=== PATIENT | female | born 1990 | race Caucasian/White ===

== ENCOUNTER 2020-02-27 11:40 | Inpatient (IN) | payer OTHER ==
[~2020-02-27] VITALS: Ht 170.2 cm; Wt 87.1 kg
[2020-02-27] MEDS ORDERED: EVENING PRIMROSE (12:28)
[2020-02-27] MEDS ORDERED: PRENATAL TABLE1 EAC2 PO (12:28)
[2020-02-27] MEDS ORDERED: FEROSUL325 M1 PO (12:29)
[2020-02-27] MEDS ORDERED: ACYC800 (12:30)
[2020-02-27] MEDS ORDERED: Acerola C500 MG PO (12:30)
--- NOTE | 2020-02-27 12:33 | NUR ---
PT VERBALLY ANSWERES NO TO ALL SUISIDE RISK ASSESSMENT QUESTIONS
[2020-02-27 13:42] LABS: BASOPHILS ABSOLUTE AUTO 0.05 K/mm3 (0.00-0.23); BASOPHILS PERCENT AUTO 1 % (0-2); EOSINOPHILS ABSOLUTE AUTO 0.21 K/mm3 (0.00-0.68); EOSINOPHILS PERCENT AUTO 2 % (0-6); Hematocrit 35.2 % (33.0-51.0); IMMATURE GRAN ABSOLUTE AUTO 0.15 K/mm3 (0.00-0.10); IMMATURE GRAN PERCENT AUTO 1 % (0-1); LYMPHOCYTES ABSOLUTE AUTO 1.74 K/mm3 (0.84-5.20); LYMPHOCYTES PERCENT AUTO 16 % (21-46); MONOCYTES ABSOLUTE AUTO 0.72 K/mm3 (0.16-1.47); MONOCYTES PERCENT AUTO 7 % (4-13); Mean Corpuscular HGB 31.3 pg (26.0-34.0); Mean Corpuscular HGB Conc 34.1 g/dL (31.5-36.5); Mean Corpuscular Volume 92 fL (80-100); Mean Platelet Volume 11.7 fL (9.1-12.4); NEUTROPHILS ABSOLUTE AUTO 7.89 K/mm3 (1.96-9.15); NEUTROPHILS PERCENT AUTO 73 % (41-73); Platelet Count 164 K/mm3 (150-400); RDW Coefficient Variation 12.1 % (11.7-14.2); RDW Standard Deviation 40.3 fL (35.1-46.3); Red Blood Cell Count 3.84 M/mm3 (3.80-5.20); White Blood Cell Count 10.76 K/mm3 (4.00-11.30)
[2020-02-27 13:54] LABS: Influenza A, PCR Negative (NEGATIVE); Influenza B, PCR Negative (NEGATIVE); Resp Syncytial Virus, PCR Negative (NEGATIVE); SARS-Cov-2 (COVID-19) PCR, MMC Negative (NEGATIVE)
[2020-02-27 17:59] LABS: U Amphetamine Screen Not Detected; U Barbituate Screen Not Detected; U Benzodiazapine Screen Not Detected; U Buprenorphine Screen Not Detected; U Cannabinoids Screen Not Detected; U Cocaine Screen Not Detected; U Methadone Screen Not Detected; U Methamphetamine Screen Not Detected; U Opiates Screen Not Detected; U Oxycodone Screen Not Detected; U Phencyclidine Screen Not Detected; U Propoxyphene Screen Not Detected
--- NOTE | 2020-02-27 18:17 | NUR ---
2 ATTEMPTS BY TOO NELSON AND 2 ATTEMPTS BY TOO MELENDEZ. SUCCESSFUL PLACEMENT ON THE OVERALL 4TH ATTEMPT
--- NOTE | 2020-02-28 06:50 | NUR ---
CATHETER D/C AT 0444
--- NOTE | 2020-02-28 16:43 | NUR ---
RN ROUNDED TO HELP W/ . NB NOT SHOWING INTEREST IN FEEDING. INSTRUCT/DEMO WIDENING LATCH, CORRECT POSITIONING AND NIPPLE SHAPE AFTER FEEDS. RN WILL ROUND AGAIN THE MORNING TO HELP W/ LATCHING.
[2020-02-29 05:53] LABS: Hematocrit 33.2 % (33.0-51.0); Hemoglobin 11.1 g/dL (11.5-16.0); Mean Corpuscular HGB 31.4 pg (26.0-34.0); Mean Corpuscular HGB Conc 33.4 g/dL (31.5-36.5); Mean Corpuscular Volume 94 fL (80-100); Mean Platelet Volume 11.4 fL (9.1-12.4); Platelet Count 156 K/mm3 (150-400); RDW Coefficient Variation 12.2 % (11.7-14.2); RDW Standard Deviation 42.4 fL (35.1-46.3); Red Blood Cell Count 3.54 M/mm3 (3.80-5.20); White Blood Cell Count 12.09 K/mm3 (4.00-11.30)
--- NOTE | 2020-02-29 12:16 | NUR ---
PT DISCHARGED TO HOME WITH .
--- NOTE | 2020-02-29 13:12 | NUR ---
RN ROUNED TO HELP W/ . PT STATES NB HAS NOT BEEN LATCHING AND HAS BEEN GIVEN FORMULA. PT USING SHIELD, RN SHOWED PT HOW TO LATCH NB W/ SHIELD AND BY HAVING MILK READY IN THE SHIELD. NB LATCHED EASILY AND WAS FEEDING WELL WHEN RN IN ROOM. PT STATES THIS IS SOMETHING SHE FEELS SHE CAN DO AT HOME. FURTHER SUPPORT OFFERED IF PT DESIRES.
== END 2020-02-29 12:15 | disposition home or self-care (01) | DRG 807 ==
LOC: OBS 11:40 → BC 11:41 → OBS 11:49 → BC 11:51
PROVIDERS: ADMIT Advanced Practice Midwife
PROC: 3E0R3BZ Introduction of Anesthetic Agent into Spinal Canal, Percutaneous Approach (ICD-10-PCS; 2020-02-27)
PROC: 00HU33Z Insertion of Infusion Device into Spinal Canal, Percutaneous Approach (ICD-10-PCS; 2020-02-27)
PROC: 10E0XZZ Delivery of Products of Conception, External Approach (ICD-10-PCS; principal; 2020-02-28)
PROC: 0HQ9XZZ Repair Perineum Skin, External Approach (ICD-10-PCS; 2020-02-28)
DX: O48.0 Post-term pregnancy (principal); Z37.0 Single live birth; Z3A.40 40 weeks gestation of pregnancy; O70.0 First degree perineal laceration during delivery
CPT/HCPCS: 0241U; 36415; 51702; 85025; 85027; 86850; 86870; 86900; 86901; J0290; J1885; J2001; J2210; J2590; J2791; J3010; J7120

== ENCOUNTER 2020-04-01 13:46 | Emergency (ER) | payer OTHER ==
[~2020-04-01] VITALS: Ht 170.2 cm; Wt 77.1 kg
[~2020-04-01 13:46] MED LIST: ACYC800; Acerola C500 MG PO; EVENING PRIMROSE; FEROSUL325 M1 PO; PRENATAL TABLE1 EAC2 PO
[2020-04-01] MEDS ORDERED: DOXY100 (14:14)
[2020-04-01] MEDS ORDERED: KETO10 PO ×2 (14:34)
[2020-04-01] MEDS ORDERED: AMOCLA875 PO ×2 (14:34)
== END 2020-04-01 14:31 | disposition home or self-care (01) ==
LOC: ER 13:46
DX: N61.0 Mastitis without abscess (principal)
CPT/HCPCS: 99283

== ENCOUNTER 2020-04-03 21:15 | Observation (INO) | payer OTHER ==
[~2020-04-03] VITALS: Ht 170.2 cm; Wt 79.0 kg
[~2020-04-03 21:15] MED LIST changes: +AMOCLA875 PO; +DOXY100; +KETO10 PO
[2020-04-03 22:37] LABS: BASOPHILS ABSOLUTE AUTO 0.06 K/mm3 (0.00-0.23); BASOPHILS PERCENT AUTO 1 % (0-2); EOSINOPHILS ABSOLUTE AUTO 0.44 K/mm3 (0.00-0.68); EOSINOPHILS PERCENT AUTO 4 % (0-6); Hematocrit 35.6 % (33.0-51.0); Hemoglobin 11.8 g/dL (11.5-16.0); IMMATURE GRAN ABSOLUTE AUTO 0.04 K/mm3 (0.00-0.10); IMMATURE GRAN PERCENT AUTO 0 % (0-1); LYMPHOCYTES ABSOLUTE AUTO 2.24 K/mm3 (0.84-5.20); LYMPHOCYTES PERCENT AUTO 20 % (21-46); MONOCYTES ABSOLUTE AUTO 1.08 K/mm3 (0.16-1.47); MONOCYTES PERCENT AUTO 10 % (4-13); Mean Corpuscular HGB 30.1 pg (26.0-34.0); Mean Corpuscular HGB Conc 33.1 g/dL (31.5-36.5); Mean Corpuscular Volume 91 fL (80-100); Mean Platelet Volume 10.2 fL (9.1-12.4); NEUTROPHILS ABSOLUTE AUTO 7.15 K/mm3 (1.96-9.15); NEUTROPHILS PERCENT AUTO 65 % (41-73); Platelet Count 222 K/mm3 (150-400); RDW Standard Deviation 36.6 fL (35.1-46.3); Red Blood Cell Count 3.92 M/mm3 (3.80-5.20); White Blood Cell Count 11.01 K/mm3 (4.00-11.30)
[2020-04-03 22:53] LABS: Alanine Aminotransfer (ALT/SGP 18 U/L (12-78); Albumin/Globulin Ratio 0.8 (0.8-1.8); Alk Phos 104 U/L (50-136); Anion Gap 4 mmol/L (6-16); Aspartate Aminotrans (AST/SGOT 12 U/L (12-37); Bilirubin, Total 0.3 mg/dL (0.1-1.0); Blood Urea Nitrogen 13 mg/dL (8-24); Bun/Creatinine Ratio 17.9 (12.0-20.0); CO2, Blood 28 mmol/L (21-32); Calcium, Blood 8.4 mg/dL (8.5-10.1); Chloride, Blood 110 mmol/L (98-108); Creatinine, Blood 0.73 mg/dL (0.40-1.00); Globulin, Blood 3.9 g/dL (2.2-4.0); Glomerular Filtration Rate >60 (60-); Glucose, Blood 88 mg/dL (70-99); Potassium, Blood 3.7 mmol/L (3.5-5.5); Sodium, Blood 142 mmol/L (136-145); Total Protein, Blood 6.9 g/dL (6.4-8.2)
--- NOTE | 2020-04-04 01:45 | NUR ---
PT ARRIVED TO ROOM FROM ER; ACCOMPANIED BY SIG OTHER. PT ALERT, VSS. PT HAS LARGE REDDENED AREA AROUND RIGHT BREAST APPX 6.5 INCHES ACCROSS WITH LARGE RED/PURPLE COLORED ABCESS APPX 2.5 INCHES IN DIAMETER AND RAISED APPX 2CM. NO DRNG NOTRED FROM ABCESS. AREAS OUTLINED. PT REP PAIN 5/10, IMPROVED AFTER MED IN ER. PT DENIES N/V. PT REP PUMPS AND DUMPS BREAST MILK. PUMP BROUGHT UP FROM [facility] FOR PT TO USE IN ROOM. PT ORIENTED TO ROOM/CALL LIGHT. PT NPO PER ORDERS FOR PLAN FOR SURGERY TODAY.
[2020-04-04 03:07] LABS: Influenza A, PCR Negative (NEGATIVE); Influenza B, PCR Negative (NEGATIVE); Resp Syncytial Virus, PCR Negative (NEGATIVE); SARS-Cov-2 (COVID-19) PCR, MMC Negative (NEGATIVE)
--- NOTE | 2020-04-04 07:30 | NUR ---
PT VSS T/O NIGHT. RIGHT BREAST REMAINS RED/HOT TO TOUCH. NO CHANGES NOTED IN REDNESS, ABCESS DOES APPEAR MORE RAISED THIS AM; NO DRNG NOTED. PAIN MGD W/0.5MG IV DILAUDID W/REP RELIEF. PT ENC TO PUMP TO HELP REDUCE PRESSURE. PT HAD NO C/O N/V, HAS BEEN NPO SINCE ARRIVING TO FLOOR FOR PLAN FOR SURGERY TODAY.
--- NOTE | 2020-04-04 14:50 | NUR ---
ARRIVED INTO [facility] WITH RN ADMISSON TO UNIT STARTED. PATIENT ALERT ORENTED AND COORPEATIVE
--- NOTE | 2020-04-04 16:24 | NUR ---
ARRIVED AIRWAY IN PLACE VSS DRESSING IN PLACE WEARING BREAST BINDER WITH GAUZE AND ABD UNDER.
--- NOTE | 2020-04-04 17:22 | NUR ---
SHIFT SUMMARY PT POD 0 I&D R BREAST ABCESS. PT RETURNED TO UNIT FROM PACU AT APROX 1700. PT REPORTS PAIN TOLERABLE AT THIS TIME 07/16. BREAST BINDER IN PLACE WITH GUAZE UNDERNEATH CLEAN AND DRY. PT SLEEPY, AWAKENS EASILY TO VERBAL STIMULUS. PT HAS USED BREAST PUMP TO PREVENT ENGORGEMENT T/O SHIFT.
--- NOTE | 2020-04-05 04:22 | NUR ---
SHIFT SUMMARY: PT POD#1 FOR INCISION AND DRAINAGE OF RIGHT BREAST ABSCESS. WOUND PACKED WITH GAUZE WITH ABD PAD AND BREAST BINDER IN PLACE. DRESSING APPEARS WNL. PAIN BEING MANAGED WITH NORCO PER EMAR. PT INDEPENDENT IN ROOM. VOIDING WELL. LEXII PO AND DENIES N/V. IV ABX INFUSING PER ORDERS. VSS THROUGHOUT NIGHT.
[2020-04-05] MEDS ORDERED: HYDR1TAB94 PO ×2 (11:22)
[2020-04-05] MEDS ORDERED: CLEOCIN PO ×2 (11:25)
--- NOTE | 2020-04-05 15:49 | NUR ---
DISCHARGE PT DISCHARGED HOME FROM UNIT AT APROX 1515. PT GIVEN WRITTEN AND VERBAL DISCHARGE INSTRUCTIONS AND VERBALIZED UNDERSTANDING OF THESE INSTRUCTIONS. IV REMOVED. PT GIVEN SUPPLIES FOR PACKING WOUND AND GAVE VERBAL INSTRUCTIONS TO BOYFRIEND ON HOW TO CHANGE PACKING. WHEELCHAIR TO CAR
== END 2020-04-05 15:44 | disposition home or self-care (01) ==
LOC: ER 21:15 → SURS 21:16
PROVIDERS: Emergency Medicine; ADMIT Surgery
DX: O91.12 Abscess of breast associated with the puerperium (principal); B96.89 Other specified bacterial agents as the cause of diseases classified elsewhere; O92.29 Other disorders of breast associated with pregnancy and the puerperium; Z79.2 Long term (current) use of antibiotics; Z79.899 Other long term (current) drug therapy; Z91.09 Other allergy status, other than to drugs and biological substances; Z20.828 Contact with and (suspected) exposure to other viral communicable diseases; Z23 Encounter for immunization
CPT/HCPCS: 0241U; 36415; 76642; 80053; 81025; 85025; 87070; 87075; 87077; 87186; 87205; 96365; 96375; 99284-25; A9270-GY; J1100; J1170; J2250; J2405; J2704; J3010; J7120

== ENCOUNTER 2020-04-19 00:25 | Day surgery (SDC) | payer OTHER ==
[~2020-04-19 00:25] MED LIST changes: +CLEOCIN PO; +HYDR1TAB94 PO
== END 2020-04-19 22:43 | disposition home or self-care (01) ==
LOC: WOUND 00:25
DX: O91.12 Abscess of breast associated with the puerperium (principal); Z88.1 Allergy status to other antibiotic agents
CPT/HCPCS: G0463

== ENCOUNTER 2020-04-26 00:30 | Day surgery (SDC) | payer OTHER | END 2020-04-26 23:10 | disposition home or self-care (01) | LOC: WOUND 00:30 | DX: S20.111A Abrasion of breast, right breast, initial encounter (principal); I96 Gangrene, not elsewhere classified; Z91.09 Other allergy status, other than to drugs and biological substances; Z79.899 Other long term (current) drug therapy; Z20.822 Contact with and (suspected) exposure to COVID-19; X58.XXXA Exposure to other specified factors, initial encounter | CPT/HCPCS: A9270 ==

== ENCOUNTER 2020-05-05 00:27 | Day surgery (SDC) | payer OTHER | END 2020-05-05 23:20 | disposition home or self-care (01) | LOC: WOUND 00:27 | DX: O91.13 Abscess of breast associated with lactation (principal) | CPT/HCPCS: G0463 ==

== ENCOUNTER 2020-05-12 00:22 | Day surgery (SDC) | payer OTHER | END 2020-05-12 23:45 | disposition home or self-care (01) | LOC: WOUND 00:22 | DX: O91.13 Abscess of breast associated with lactation (principal) | CPT/HCPCS: G0463 ==

== ENCOUNTER 2020-05-19 00:36 | Day surgery (SDC) | payer OTHER | END 2020-05-19 22:45 | disposition home or self-care (01) | LOC: WOUND 00:36 | DX: L98.491 Non-pressure chronic ulcer of skin of other sites limited to breakdown of skin (principal); L03.313 Cellulitis of chest wall; Z86.19 Personal history of other infectious and parasitic diseases | CPT/HCPCS: A9270 ==

== ENCOUNTER 2020-05-26 00:31 | Day surgery (SDC) | payer OTHER | END 2020-05-26 23:48 | disposition home or self-care (01) | LOC: WOUND 00:31 | DX: L98.492 Non-pressure chronic ulcer of skin of other sites with fat layer exposed (principal); N61.0 Mastitis without abscess | CPT/HCPCS: G0463 ==

== ENCOUNTER 2020-06-02 00:15 | Day surgery (SDC) | payer OTHER | END 2020-06-02 23:43 | disposition home or self-care (01) | LOC: WOUND 00:15 | DX: L98.492 Non-pressure chronic ulcer of skin of other sites with fat layer exposed (principal) | CPT/HCPCS: G0463 ==

== ENCOUNTER 2020-08-30 08:36 | Day surgery (SDC) | payer OTHER | END 2020-08-30 23:02 | disposition home or self-care (01) | LOC: WOUND 08:36 | DX: L98.491 Non-pressure chronic ulcer of skin of other sites limited to breakdown of skin (principal); N64.4 Mastodynia; Z88.1 Allergy status to other antibiotic agents | CPT/HCPCS: A9270; G0463 ==

== ENCOUNTER 2020-09-06 04:51 | Day surgery (SDC) | payer OTHER | END 2020-09-06 23:40 | disposition home or self-care (01) | LOC: WOUND 04:51 | DX: L98.491 Non-pressure chronic ulcer of skin of other sites limited to breakdown of skin (principal); N64.4 Mastodynia | CPT/HCPCS: A9270; G0463 ==

== ENCOUNTER 2020-09-13 02:20 | Day surgery (SDC) | payer OTHER | END 2020-09-13 22:46 | disposition home or self-care (01) | LOC: WOUND 02:20 | DX: L98.491 Non-pressure chronic ulcer of skin of other sites limited to breakdown of skin (principal); N64.4 Mastodynia | CPT/HCPCS: A9270; G0463 ==

== ENCOUNTER 2020-09-20 00:32 | Day surgery (SDC) | payer OTHER | END 2020-09-20 22:43 | disposition home or self-care (01) | LOC: WOUND 00:32 | DX: Z09 Encounter for follow-up examination after completed treatment for conditions other than malignant neoplasm (principal); N64.4 Mastodynia; Z88.1 Allergy status to other antibiotic agents; Z87.2 Personal history of diseases of the skin and subcutaneous tissue | CPT/HCPCS: G0463 ==

== ENCOUNTER 2020-10-04 04:06 | Day surgery (SDC) | payer OTHER | END 2020-10-04 23:44 | disposition home or self-care (01) | LOC: WOUND 04:06 | DX: L98.491 Non-pressure chronic ulcer of skin of other sites limited to breakdown of skin (principal); N64.4 Mastodynia | CPT/HCPCS: G0463 ==

== ENCOUNTER 2021-08-13 18:05 | Emergency (ER) | payer OTHER ==
[~2021-08-13] VITALS: Ht 170.2 cm; Wt 59.9 kg
[2021-08-13] MEDS ORDERED: TRIDERM28.4 GM TOP (19:22)
[2021-08-13 20:49] LABS: Source, Urine Clean Catch
[2021-08-13 20:57] LABS: Bilirubin, Urine Neg (Neg); Blood, Urine 1+ (Neg); Glucose Qualitative, Urine Neg (Neg); Ketones, Urine Neg (Neg); Leukocyte Esterase, Urine Neg (Neg); Nitrite, Urine Neg (Neg); Protein, Urine Neg (Neg); Urobilinogen, Urine 1+ (Normal)
[2021-08-13 21:05] LABS: Appearance, Urine Hazy (Clear); Color, Urine Yellow (P-Yellow); Red Blood Cells, Urine 0-2 /hpf (0-2); White Blood Cells, Urine Not Seen /hpf (0-5)
[2021-08-13 21:06] LABS: Amorphous Mod (0-Heavy); Bacteria Few /hpf; Calcium Oxalate Crystals Few /hpf; Squamous Epithelial Cells Few /hpf (Few)
[2021-08-13 21:38] LABS: Candida species (DNA Probe) Negative (NEGATIVE); G. vaginalis (DNA Probe) Positive (NEGATIVE); T. vaginalis (DNA Probe) Negative (NEGATIVE)
[2021-08-14 09:47] LABS: RPR Reactive (Nonreactive)
[2021-08-14 09:49] LABS: RPR TITER 1:32
[2021-08-14] MEDS ORDERED: Flagyl500 MG PO (15:56)
== END 2021-08-13 21:35 | disposition home or self-care (01) ==
LOC: ER 18:05
PROVIDERS: Physician Assistant
DX: L42 Pityriasis rosea (principal); B08.5 Enteroviral vesicular pharyngitis; Z91.09 Other allergy status, other than to drugs and biological substances
CPT/HCPCS: 36415; 81001; 81025; 86592; 86593; 87480; 87510; 87660; A9270; J0696

== ENCOUNTER 2021-08-14 15:37 | Emergency (ER) | payer OTHER ==
[~2021-08-14] VITALS: Ht 170.2 cm; Wt 59.9 kg
[~2021-08-14 15:37] MED LIST changes: +TRIDERM28.4 GM TOP
[2021-08-14] MEDS ORDERED: Flagyl500 MG PO (15:56)
== END 2021-08-14 17:32 | disposition home or self-care (01) ==
LOC: ER 15:37
DX: A53.9 Syphilis, unspecified (principal)
CPT/HCPCS: J0561

== ENCOUNTER → 2021-10-28 | Outpatient (CLI) | payer OTHER ==
[~2021-10-28] MED LIST changes: +Flagyl500 MG PO
== END | disposition home or self-care (01) ==
LOC: LAB SHORT 09:00 → LAB 09:00
DX: B95.8 Unspecified staphylococcus as the cause of diseases classified elsewhere (principal)
CPT/HCPCS: 87070; 87205

== ENCOUNTER → 2022-04-24 | Outpatient (CLI) | payer OTHER | LOC: LAB SHORT 15:53 → LAB 15:53 | DX: N39.0 Urinary tract infection, site not specified (principal) | CPT/HCPCS: 87077; 87086; 87186 ==

== ENCOUNTER → 2022-05-21 | Outpatient (CLI) | payer OTHER | END | disposition home or self-care (01) | LOC: LAB SHORT 18:30 → LAB 18:30 | DX: N39.0 Urinary tract infection, site not specified (principal) | CPT/HCPCS: 87077; 87086; 87186 ==

== ENCOUNTER 2022-12-21 20:34 | Emergency (ER) | payer OTHER ==
[~2022-12-21] VITALS: Ht 170.2 cm; Wt 72.6 kg
[2022-12-21 20:47] VITALS: BP 134/95
== END 2022-12-22 01:59 | disposition home or self-care (01) ==
LOC: ER 20:34
DX: T74.21XA Adult sexual abuse, confirmed, initial encounter (principal); Z88.1 Allergy status to other antibiotic agents; Z88.8 Allergy status to other drugs, medicaments and biological substances; Z91.018 Allergy to other foods; Z79.899 Other long term (current) drug therapy
CPT/HCPCS: 81000; 81025; 96372; A9270; J0696

== ENCOUNTER → 2023-02-18 | Outpatient (CLI) | payer OTHER | LOC: LAB 17:54 → LAB SHORT 17:54 | DX: Z86.14 Personal history of Methicillin resistant Staphylococcus aureus infection (principal) | CPT/HCPCS: 87081 ==

== ENCOUNTER → 2023-03-20 | Outpatient (CLI) | payer OTHER ==
[2023-03-24 21:37] LABS: APTIMA MEDIA TYPE Unisex Swab; C. TRACHOMATIS BY TMA Negative (Negative); N. GONORRHOEAE BY TMA Negative (Negative); SPECIMEN SOURCE Vaginal
== END ==
LOC: LAB SHORT 14:51 → LAB 14:51
PROVIDERS: Physician Assistant
DX: Z11.3 Encounter for screening for infections with a predominantly sexual mode of transmission (principal); Z12.4 Encounter for screening for malignant neoplasm of cervix
CPT/HCPCS: 87491; 87591

== ENCOUNTER 2024-02-21 10:37 | Emergency (ER) | payer OTHER ==
[~2024-02-21] VITALS: Ht 170.2 cm; Wt 71.7 kg
[2024-02-21 10:55] VITALS: BP 115/78
[2024-02-21 12:04] LABS: Influenza A, PCR NEGATIVE (NEGATIVE); Influenza B, PCR NEGATIVE (NEGATIVE); Resp Syncytial Virus, PCR NEGATIVE (NEGATIVE); SARS-Cov-2 (COVID-19) PCR, MMC NEGATIVE (NEGATIVE)
== END 2024-02-21 12:35 | disposition home or self-care (01) ==
LOC: ER 10:37
PROVIDERS: Physician Assistant
DX: R50.9 Fever, unspecified (principal); R51.9 Headache, unspecified; Z79.899 Other long term (current) drug therapy; Z88.1 Allergy status to other antibiotic agents; Z91.018 Allergy to other foods; Z88.8 Allergy status to other drugs, medicaments and biological substances
CPT/HCPCS: 0241U; 99283

== ENCOUNTER → 2024-04-14 | Outpatient (CLI) | payer OTHER ==
[2024-04-14 17:25] LABS: Candida Group, PCR NOT DETECTED (NOT DETECT); Candida glabrata-krusei, PCR NOT DETECTED (NOT DETECT)
[2024-04-14 17:58] LABS: Bacterial Vaginosis PCR Positive (NEGATIVE)
== END ==
LOC: LAB 15:02 → LAB SHORT 15:02
PROVIDERS: Physician Assistant
DX: N89.8 Other specified noninflammatory disorders of vagina (principal)
CPT/HCPCS: 81515